=== PATIENT | female | born 1955 | race African-American/Black ===

== ENCOUNTER 2017-01-24 11:17 | Emergency (ER) | payer OTHER ==
[~2017-01-24] VITALS: Ht 162.6 cm; Wt 86.2 kg
[2017-01-24 12:19] LABS: ABSOLUTE NEUTROPHILS 6.7 thou/uL (1.4-8.2); BASOPHILS 0.4 % (0.0-2.0); EOSINOPHILS 0.1 % (0.0-3.0); HEMATOCRIT 41.6 % (37.0-47.0); HEMOGLOBIN 14.2 gm/dL (12.0-15.0); LYMPHOCYTES 13.5 % (24.0-44.0); MCH 32.5 pg (26.0-34.0); MCHC 34.1 g/dL (28.0-37.0); MCV 95.2 fL (80.0-100.0); PLATELET COUNT 328 thou/uL (150-400); RBC 4.37 mil/uL (4.20-5.00); RDW 13.9 % (10.5-14.5); WBC 8.5 thou/uL (4.0-11.0)
[2017-01-24 12:23] LABS: MANUAL DIFF NO
[2017-01-24 12:30] LABS: CREATININE 0.8 mg/dL (0.6-1.0); POTASSIUM 3.9 mmol/L (3.5-5.1)
[2017-01-24 12:53] LABS: URINE BILIRUBIN NEGATIVE (Negative); URINE BLOOD TRACE (Negative); URINE COLOR YELLOW; URINE GLUCOSE-RANDOM* 2+ (Negative); URINE KETONES 1+ (Negative); URINE LEUKOCYTES-REFLEX NEGATIVE (Negative); URINE PROTEIN (DIPSTICK) NEGATIVE (Negative); URINE SPECIFIC GRAVITY 1.015 (1.003-1.035); URINE UROBILINOGEN 0.2 E.U./dl (0.2-1.0)
[2017-01-24] MEDS ORDERED: LEVOTHYROXIN0.075 MG PO (13:24)
[2017-01-24] MEDS ORDERED: LIPITOR10 MG PO (13:24)
[2017-01-24] MEDS ORDERED: METFORMIN HCL500 MG PO (13:24)
[2017-01-24] MEDS ORDERED: AMLODIPINE BESY10 MG PO (13:25)
[2017-01-24] MEDS ORDERED: AMARYL2 MG PO (14:12)
[2017-01-24 15:00] VITALS: BP 132/87
== END 2017-01-24 15:11 | disposition home or self-care (01) ==
LOC: ER 11:17
PROVIDERS: Emergency Medicine
DX: E09.65 Drug or chemical induced diabetes mellitus with hyperglycemia (principal); F10.99 Alcohol use, unspecified with unspecified alcohol-induced disorder; Z88.7 Allergy status to serum and vaccine